=== PATIENT | female | born 1990 | race Native Hawaiian/Other Pacific Islander ===

== ENCOUNTER → 2017-07-09 14:51 | Outpatient (CLI) | payer MEDICAID, SELFPAY ==
[2017-07-09 18:31] LABS: Group B Strep DNA By PCR POSITIVE (Negative); Probe Check PASS
== END ==
PROVIDERS: Visit Provider Obstetrics & Gynecology
DX: Z36.85 Encounter for antenatal screening for Streptococcus B (principal)
CPT/HCPCS: 87653

== ENCOUNTER 2017-07-31 07:05 | Inpatient (IN) | payer MEDICAID, SELFPAY ==
[2017-07-31] MEDS: Lactated Ringers 1,000 ML 50 ML IV ×2 (07:30→16:20)
[2017-07-31 07:46] LABS: Hematocrit 44.8 % (37-47); Hemoglobin 14.9 g/dl (12.0-15.0); Mean Corp Hgb Conc 33.3 g/gl (32-36); Mean Corpuscular Hgb 30.1 pg (27.0-32.0); Mean Corpuscular Volume 90.5 fL (81-99); Mean Platelet Vol. 9.7 fl (6.2-12.0); Platelet Count 232 K/mm3 (150-450); RBC Distribution Width CV 12.9 % (11.6-14.6); RBC Distribution Width SD 42.1 fl (35.1-43.9); Red Blood Count 4.95 M/mm3 (4.2-5.4); White Blood Count 8.1 K/mm3 (4.4-11.0)
[2017-07-31 07:49] VITALS: BMI 33.5
[2017-07-31 07:50] LABS: Scan Indicated on CBC? Y/N NO
[2017-07-31] MEDS: Oxytocin 30 units/NS 500 ml 30 UNITS/500 ML IV.SOLN IV (08:09)
--- NOTE | 2017-07-31 17:28 | PCM.PN.OB ---
Subjective: Uncomfortable with contractions. Objective: Afeb VSS FHR tracing CAT 1. - Physical Exam General: Alert, Oriented x3, Cooperative Cardiovascular: Regular rate, Regular Rhythm Abdomen: Soft, Non-Distended, Gravid, Appropriate for Gestational Age Skin: No rashes Neurological: Neuro grossly intact Psych/Mental Status: Normal Affect Comment: SHARON /-2 Weight: 195 lb 8.8 oz Body Mass Index (BMI) 33.5 Intake and Output for Last 24 Hours 07/29/17 07/30/17 07/31/17 23:59 23:59 23:59 Output Total 1400 / 1400 Balance -1400 / -1400 Laboratory Tests Past 24 Hrs 07/31/17 07/31/17 07:30 07:30 WBC 8.1 RBC 4.95 Hgb 14.9 Hct 44.8 MCV 90.5 MCH 30.1 MCHC 33.3 RDW 12.9 RDW Differential 42.1 Plt Count 232 MPV 9.7 Blood Type B POSITIVE Antibody Screen NEGATIVE Medical Necessity - Tobacco Use Smoking Status: Never smoker Assessment/Plan Progressing in labor. Continue pitocin. Contractions adequate.
[2017-07-31] MEDS: fentaNYL-bupivacaine (epidural) 100 ML BAG EPIDURAL (18:11)
[2017-07-31] MEDS: Oxytocin 30 units/NS 500 ml 30 UNITS/500 ML IV.SOLN 334 UNITS IV (18:43)
--- NOTE | 2017-07-31 18:59 | PCM.OB.VAG ---
- Problem List (1) Oligohydramnios delivered Status: Chronic Vaginal Delivery Maternal Presentation: Medically Indicated Induction Presents at 39w4d ega for induction of labor secondary to severe oligohydramnios. Otherwise uncomplicated . Method of Induction: Pitocin Medical Reason for Induction: - - Severe oligohydramnios Amniotic Membrane Rupture Type: Artificial Rupture of Membrane time: 1010 Amniotic Fluid Description: Clear Final ARSENIO: 08/03/17 Final ARSENIO Source: US <20 weeks Gestational age: 39 Weeks and 4 Days Date of Procedure: 07/31/17 Pre-Operative Diagnosis: Labor Post-Operative Diagnosis: Labor Surgery/ Procedure Performed: Spontaneous Vaginal Delivery Anesthesiologist: Benjie Arceo Type of Anesthesia: Epidural Description of Procedure: Dunia presented at 2 cm dilated at 0700. Was started on pitocin for induction and progressed slowly to 5 cm over 10 1/2 hours. She then had epidural placed and afterward felt urge to push. Over one contraction she pushed baby from +2 station to delivery. There was a loose cord around the neck x 1 which was easily reduced. At delivery the mouth was suctioned with a bulb suction. Delayed cord clamping was employed. The cord was then clamped and cut. Apgars were 8/9 with active cry shortly after delivery. The placenta delivered spontaneously intact. The uterus contracted well. The cervix, upper and lower vagina and perineum were inspected and found to be intact. Presentation: Vertex Placental Delivery Description: Spontaneous Placenta Disposition: [facility] Percentage of Placenta Abruption: 0 Cord Vessel Description: 3 Vessels Nuchal Cord Compression: Without compression Cord Entanglement: Around neck x 1, loose Estimated Blood Loss: 200cc Infant A gender: Male (1 minute): 8 (5 minute): 9 Episiotomy Description: None Laceration: None Medications given after delivery: IV Pitocin Complications: None
[2017-07-31] MEDS: Oxytocin 30 units/NS 500 ml 30 UNITS/500 ML IV.SOLN 167 UNITS IV (19:15)
--- NOTE | 2017-07-31 19:18 | DCINST_ITS ---
Discharge Diet: No Restrictions Discharge Activity: Return to Normal Activity, May Drive, May Shower Return to work on:: 09/30/17 May shower in (days): 0 May resume sexual activity in: 4-6 weeks Call your doctor if your incision/area has: Sudden Increased Bleeding, Increased Pain/ Swelling, Increased Redness, Foul Smelling Discharge Call your doctor if you observe: Fever of 101 or Higher, Inability to urinate, Inability to have a bowel movement, Using more than one pad per hour, Shortness of breath, Chest pain, Calf discomfort, Uncontrolled pain Cleanse incision/area with: Soap & Water Additional Instructions: If you experience any of the following, contact your healthcare provider. * Bleeding that soaks a pad every hour for 2 hours * Fever 100.4 or higher * Unrelieved incision or abdominal pain * Swelling, redness, discharge or bleeding from your incision or episiotomy site * Your incision begins to separate * Problems urinating (including inability to urinate or burning while urinating) . * Visual changes * Severe headache * Flu-like symptoms * Pain or redness in one of both of your breasts * Pain, warmth, tenderness or swelling in your legs, especially the calf area * Frequent nausea and vomiting * Symptoms of depression or anxiety If you experience any of the following, call 911 or go to the nearest Emergency Room. * Chest pain * Problems breathing * Seizure activity * Partial or complete paralysis of a body part, slurred speech, weakness or drooping of the face, or a sudden inability to walk or hold your balance Allergies/Adverse Reactions: Allergies No Known Allergies Allergy (Verified 07/31/17 07:48) Medications to take at Discharge Ibuprofen [Motrin] 800 mg PO TID PRN PRN #30 tab 07/31/17 Vit Calc,Iron,Folic [ Vitamins] 1 tab PO DAILY 07/31/17 The following prescriptions were given: Ibuprofen [Motrin] 800 mg PO TID PRN PRN #30 tab PRN Reason: pain or cramping Please Follow Up With: Mike Sr MD When: 6 weeks Primary Care Physician: Nguyen Julien NP-C [Primary Care Provider] - Proposed Discharge Date: 08/02/17
[2017-07-31] MEDS: 0.9% Saline Lock 10 ML Syringe IV (20:15)
[2017-07-31 23:50] VITALS: BP 121/74; PULSE 118; RESP 18; TEMP 36.6; O2SAT 98
[2017-08-01 03:15] VITALS: BP 114/67; PULSE 127; RESP 18; TEMP 36.6; O2SAT 97
[2017-08-01 04:30] VITALS: BP 115/61; PULSE 126; RESP 18; TEMP 36.9; O2SAT 96
[2017-08-01 04:52] LABS: Hematocrit 40.8 % (37-47); Hemoglobin 13.5 g/dl (12.0-15.0); Mean Corp Hgb Conc 33.1 g/gl (32-36); Mean Corpuscular Hgb 30.3 pg (27.0-32.0); Mean Corpuscular Volume 91.5 fL (81-99); Mean Platelet Vol. 9.9 fl (6.2-12.0); Platelet Count 230 K/mm3 (150-450); RBC Distribution Width SD 42.8 fl (35.1-43.9); Red Blood Count 4.46 M/mm3 (4.2-5.4); White Blood Count 16.1 K/mm3 (4.4-11.0)
[2017-08-01 04:58] LABS: Scan Indicated on CBC? Y/N NO
--- NOTE | 2017-08-01 07:57 | PCM.PN.OB ---
Subjective: Feels well. Breast feeding. Bleeding light. Objective: Afeb HR elevated but no other signs of infection. Hgb stable. - Physical Exam General: Alert, Oriented x3, Cooperative, No apparent distress Lungs: Clear to auscultation, Normal air movement Cardiovascular: Regular rate, Regular Rhythm Abdomen: Soft, Non Tender, Non-Distended, - - Fundus nontender Extremities: No Calf Tenderness, Edema - trace pedal Skin: No rashes Neurological: Neuro grossly intact Psych/Mental Status: Normal Affect Comment: Lochia light Vital Signs Temp Pulse Resp BP Pulse Ox 98.5 F 126 H 18 115/61 96 08/01/17 04:30 08/01/17 04:30 08/01/17 04:30 08/01/17 04:30 08/01/17 04:30 Oxygen Delivery Method Room Air Weight: 195 lb 8.8 oz Body Mass Index (BMI) 33.5 Intake and Output for Last 24 Hours 07/30/17 07/31/17 08/01/17 23:59 23:59 23:59 Intake Total 2607 / 2607 Output Total 2100 / 2100 600 / 600 Balance 507 / 507 -600 / -600 Laboratory Tests Past 24 Hrs 07/31/17 08/01/17 07:30 04:35 WBC 16.1 H RBC 4.46 Hgb 13.5 Hct 40.8 MCV 91.5 MCH 30.3 MCHC 33.1 RDW 13.0 RDW Differential 42.8 Plt Count 230 MPV 9.9 Blood Type B POSITIVE Antibody Screen NEGATIVE Medical Necessity - Tobacco Use Smoking Status: Never smoker Assessment/Plan Doing well on PP day#1. Continue routine PP care.
[2017-08-01 08:30] VITALS: BP 115/82; PULSE 106; RESP 18; TEMP 36.3
[2017-08-01 14:41] VITALS: BP 113/72; PULSE 120; RESP 18; TEMP 36.3
[2017-08-01 16:00] VITALS: BP 120/80; PULSE 123; RESP 18; TEMP 36.6
[2017-08-01 19:30] VITALS: BP 128/81; PULSE 95; RESP 16; TEMP 36.3; O2SAT 98
[2017-08-01] MEDS: Hydrocortisone 2.5% Crm 1 APPLIC TOPICAL (21:20)
[2017-08-02 02:00] VITALS: BP 117/61; PULSE 87; RESP 16; TEMP 36.3; O2SAT 98
[2017-08-02 07:51] VITALS: BP 124/67; PULSE 87; RESP 16; TEMP 36.7; O2SAT 98
--- NOTE | 2017-08-02 08:12 | PCM.PN.OB ---
Subjective: No specific complaints. Breast feeding. Bleeding light. Objective: Afeb VSS - Physical Exam General: Alert, Oriented x3, Cooperative, No apparent distress Lungs: Clear to auscultation, Normal air movement Cardiovascular: Regular rate, Regular Rhythm Abdomen: Soft, Non Tender, Non-Distended, - - Fundus nontender Extremities: No edema Skin: No rashes Neurological: Neuro grossly intact Psych/Mental Status: Normal Affect Comment: Lochia light Vital Signs Temp Pulse Resp BP Pulse Ox 98.0 F 87 16 124/67 H 98 08/02/17 07:51 08/02/17 07:51 08/02/17 07:51 08/02/17 07:51 08/02/17 07:51 Oxygen Delivery Method Room Air Weight: 195 lb 8.8 oz Body Mass Index (BMI) 33.5 Intake and Output for Last 24 Hours 07/31/17 08/01/17 08/02/17 23:59 23:59 23:59 Intake Total 2607 / 2607 Output Total 2100 / 2100 600 / 600 Balance 507 / 507 -600 / -600 Medical Necessity - Tobacco Use Smoking Status: Never smoker Assessment/Plan Doing well on PP day #2 Cleared for discharge home today. Home going instructions and warnings given.
--- NOTE | 2017-08-02 08:16 | DS.PCM_ITS ---
Discharge Date and Diagnosis Date of Admission: 07/31/17 Date of Discharge: 08/02/17 - Primary Discharge Diagnosis S/P - Secondary Discharge Diagnosis Chronic Problems Oligohydramnios delivered (Chronic) Hospital Course and Treatment Consultations 07/31/17 07:17 Consult: Anesthesia Routine Comment: Reason For Exam: LABOR Operations: None Procedures: - - Pitocin induction of labor, epidural, Spontaneous vaginal delivery Summary of Care Provided: The patient is a 27 year old F [admitted for induction of labor secondary to oligohydramnios. Pitocin induction performed with resultant spontaneous vaginal delivery. Delivery and course unremarkable. Discharged home on PP day#2.] Discharge Diet: No Restrictions Discharge Activity: Return to Normal Activity, May Drive, May Shower Return to work on:: 09/30/17 May shower in (days): 0 May resume sexual activity in: 4-6 weeks Call your doctor if your incision/area has: Sudden Increased Bleeding, Increased Pain/ Swelling, Increased Redness, Foul Smelling Discharge Call your doctor if you observe: Fever of 101 or Higher, Inability to urinate, Inability to have a bowel movement, Using more than one pad per hour, Shortness of breath, Chest pain, Calf discomfort, Uncontrolled pain Cleanse incision/area with: Soap & Water Home Medications: Medications to take at Discharge RX: Ibuprofen [Motrin] 800 mg PO TID PRN PRN #30 tab 07/31/17 RX: Vit Calc,Iron,Folic [ Vitamins] 1 tab PO DAILY 07/31/17 Following Prescrptions Were Given to Patient: RX: Ibuprofen [Motrin] 800 mg PO TID PRN PRN #30 tab PRN Reason: pain or cramping Primary Care Physician: Nguyen Julien, [employer]ENT-C [Primary Care Provider] - Please Follow Up With: Mike Sr MD When: 6 weeks Disposition: Home Minutes spent on discharge:: 15 Patient Condition:: Good Medical Necessity - Tobacco Use Smoking Status: Never smoker Meaningful Use Info Meaningful Use Diagnoses (Choose all that apply): None applicable
[2017-08-02] MEDS: Prenatal Vits Tablet 1 TABLET PO (09:28)
== END 2017-08-02 11:10 | disposition home or self-care (01) | DRG 373 ==
PROVIDERS: Admitting Provider Obstetrics & Gynecology; Family Provider Nurse Practitioner Primary Care; PCP Nurse Practitioner Primary Care; Visit Provider Obstetrics & Gynecology
DX: O41.03X0 Oligohydramnios, third trimester, not applicable or unspecified (principal); O69.81X0 Labor and delivery complicated by cord around neck, without compression, not applicable or unspecified; Z37.0 Single live birth; Z3A.39 39 weeks gestation of pregnancy
CPT/HCPCS: 59025; 59050; 85027; 86850; 86900; 99218; J7120; A4216; G0378; J0290

== ENCOUNTER 2017-08-06 12:35 | Outpatient (CLI) | payer MEDICAID, SELFPAY | END 2017-08-06 13:30 | disposition home or self-care (01) | LOC: OBS 12:57 → WP 12:58 | PROVIDERS: Family Provider Nurse Practitioner Primary Care; PCP Nurse Practitioner Primary Care; Visit Provider Obstetrics & Gynecology | DX: Z00.00 Encounter for general adult medical examination without abnormal findings (principal) ==

== ENCOUNTER 2022-12-18 11:09 | Emergency (ER) | payer SELFPAY ==
[2022-12-18 11:10] VITALS: BP 121/63; PULSE 94; RESP 16; TEMP 36.6; O2SAT 98; BMI 28.8
--- NOTE | 2022-12-18 11:38 | EX.ED.GENINJ ---
HPI History of Present Illness Chief Complaint: Laceration [facility] Medical History no medical history Home Medications ibuprofen 800 mg tablet 800 mg PO TID PRN PRN pain or cramping #30 tabs 07/31/17 [Rx Last Taken Unknown] prenat.vits,michel,[id number] ( Vitamin tablet) 1 tab PO DAILY 07/31/17 [History Last Taken 07/30/17 13:00] Allergy/AdvReac Type Severity Reaction Status Date / Time No Known Allergies Allergy Verified 12/18/22 11:11 Social History Smoking Status: Never smoker EXAM Physical Exam Const Vital Signs: 12/18/22 11:10 Temperature 98 F Temperature Source Temporal Pulse Rate 94 Respiratory Rate 16 Blood Pressure 121/63 H Blood Pressure Mean 82 Pulse Ox 98 Oxygen Delivery Method Room Air [facility] MDM MDM Narrative Medical decision making narrative: HISTORY OF PRESENT ILLNESS: 32-year-old female here with concern for laceration. Patient notes laceration to left thumb. REVIEW OF SYSTEMS: Pertinent positives: Laceration Pertinent negatives: Loss of movement, loss of sensation PHYSICAL EXAM: Nursing triage notes reviewed, Vital signs reviewed Constitutional: please see mdm Extremities: No edema, intact flexion (flexor digitorum superficialis, flexor digitorum profundus) extensor mechanisms in the involved extremity Neuro: Intact 5/5 strength with ok sign (median), intact finger abduction (ulnar) intact wrist extension (radial n). Intact sensation in the radial, ulnar, and median nerve distributions. Skin: 1 cm superficial laceration noted to the palmar surface of the left first digit MEDICAL DECISION MAKING: Chief Complaint: Laceration External records reviewed: No documented tetanus immunization Factors affecting care: none [facility] Narrative: Patient was hemodynamically stable, afebrile, nontoxic-appearing. Left upper extremity neurovascularly intact. No signs of tendinous involvement. Patient's finger was soaked in chlorhexidine in sterile water. Digital block applied wound was explored no obvious foreign body or tendinous involvement. Wounds repaired with skin glue. Procedure: Laceration repair. The procedure was performed by myself. Indication: Wound repair Risks and benefits: risks, benefits and alternatives were discussed Consent: Consent was obtained. Wound Details: 1 cm linear laceration to the palmar surface of the left thumb Anesthesia: Digital block Wound prep: Patient was prepped and draped in the usual sterile fashion. Tetanus: Up-to-date Irrigation Solution: Saline Wound Preparation: Saline, chlorhexidine soak The wound was explored to its base in a bloodless field. Procedure Description: Band-Aid Patient tolerated the procedure well with no immediate complications The patient and/or family, caregivers express understanding. The patient and/or family, caregivers agrees with the plan. Shared decision making: I will have a discussion with the patient and or visitors regarding risk/benefits of further testing or admission. They will be made aware of of the risk/benefits inherent in this decision they will be given the opportunity to voice understanding. Total critical care time today provided was at least 0 minutes. This excludes separately billable procedures. Critical care time (if documented) is secondary to the patient having high probability of clinically significant/life threatening deterioration in the patient's condition which required my urgent intervention. Discharge Plan Triage Chief Complaint: Laceration ED Provider: Yo Villeda Dx/Rx/DC Orders Clinical Impression: Finger laceration Instructions: ED Laceration, Extremity: Skin Glue Prescriptions: No Action prenat.vits,michel,[id number] [ Vitamin] 1 EACH tablet 1 tab PO DAILY ibuprofen 800 MG tablet 800 mg PO TID PRN PRN (Reason: pain or cramping) Qty: 30 1RF Primary Care Provider: Nguyen Julien NP Referrals: Nguyen Julien NP, [employer] CONSULTANT-C [Primary Care Provider] - Activity Restrictions/Additional Instructions: Thank you for trusting us with your care today! Please take Tylenol (2 pills, 650 mg), ibuprofen (2 pills, 400 mg) every 6 hours as needed for pain and fever control. Please keep your wound covered. Please look out for signs of infection which include redness, white-yellow discharge, increasing pain. If the symptoms develop please return to the emergency department immediately. Please return to the emergency department if your symptoms change or worsen. Please follow with your primary care physician for further outpatient evaluation and management. Disposition Disposition: Home, Self Care
[2022-12-18] MEDS: Lidocaine 1% (20 ml mdv) 20 ML Vial INFILT (14:02)
== END 2022-12-18 14:05 | disposition home or self-care (01) ==
PROVIDERS: Emergency Provider Emergency Medicine; PCP Nurse Practitioner Primary Care; Visit Provider Emergency Medicine
DX: S61.012A Laceration without foreign body of left thumb without damage to nail, initial encounter (principal); X58.XXXA Exposure to other specified factors, initial encounter
CPT/HCPCS: 12001; 99282